=== PATIENT | female | born 1995 | race Caucasian/White ===

== ENCOUNTER 2016-10-22 13:30 | Inpatient (IN) ==
[2016-10-22] MEDS ORDERED: METOPROLOL TARTRATE 25 MG TABLET PO ONE (16:32)
[2016-10-22] MEDS ORDERED: METOPROLOL TARTRATE 5 MG/5 ML VIAL IV ONE ×2 (16:33→16:39)
--- NOTE | 2016-10-22 16:43 | Cardiothoracic History & Phys ---
Assessment and Plan - Time spent with patient Time spent with patient: Greater than 30 minutes (1) Bullous emphysema Status: Acute Assessment and plan: 21-year-old female was found to have severe bullous disease on the left lung. The patient was admitted to [place] for intra-pneumothorax for which she received 2 chest tubes over there. I was consulted today to evaluate the bullous disease and the persistent pneumothorax. I transferred her here to [place] for left VATS exploration, possible bullous resection, and pleurodesis. The patient currently has sinus tachycardia with heart rate around 120s 130s. She was started on beta-blockers. I posted her for surgery on October 23, 2016. Risks benefits and alternatives were discussed extensively with the patient and the family and they approve. Current Visit: Yes History of Present Illness Chief complaint: Extensive bullous disease History of present illness: Ms. Sandoval is a 21 year old female who was 3 days status post and delivery of premature infant at 35 weeks gestation. She was transferred from [place] to be under my care here at [place] due to extensive bullous disease that was seen on a CAT scan obtained 2 days ago of the left lung. The patient was originally admitted around 10 days ago after having chest pain on the left side and the chest x-ray showed tension pneumothorax at that point. She received the chest tube and the ER when she was admitted back then. 2 subsequent chest tubes failed to resolve the pneumothorax thorax. Allergies Allergy/AdvReac Type Severity Reaction Status Date / Time No Known Allergies Allergy Verified 10/22/16 16:25 12 point system: reviewed and no additional remarkable complaints except as stated (HPI) Medical,Surgical,& Family Hx - Medical History Respiratory: History of: Respiratory Problems - Social History Smoking Status: Never smoker Frequency of Alcohol Use: None Type of Drug Use: None Cardiology Physical Exam - Constitutional Vitals: Intake and Output 10/22/16 10/22/16 10/22/16 06:59 14:59 22:59 Other: Weight 59.421 kg Patient Weight 10/23/16 06:59 Weight 59.421 kg General appearance: normal weight - Head Head exam: Present: normal inspection - Eye Eye exam: Present: EOMI Pupils: Present: IZA - ENT ENT exam: Present: normal exam - Respiratory Respiratory exam: Present: other (Absent breath sounds on the left side with chest tubes in place.) - Cardiovascular Cardiovascular exam: Present: tachycardia
[2016-10-22] MEDS ORDERED: SODIUM CHLORIDE 0.9% 1,000 ML IV SCH (17:00)
--- NOTE | 2016-10-22 17:20 | XRay Report ---
XR chest 1V portable Indication: Coronary artery disease. Contrary to the provided history, when ICU was called, patient's actual history is that of recent state with pneumothorax treated at outside facility status post placement of multiple chest tubes. Additional history of chronic cough and persistent sickness during the . Comparison: CT chest performed [facility] October 20, 2016 as well as chest x-ray [facility] October 14, 2016. Technique: Portable AP chest was performed. Findings: Gross distortion of parenchymal architecture is demonstrated throughout the left lung. There is some areas of bleb formation possibly postinfectious cavitary lesion within the central left lung with thin-walled blebs additionally noted within the left lung base. Hydropneumothorax is present. Atelectatic lung segments and/or lung parenchyma within the left lung apex are noted in tethering of the left lung apex is not excluded. 2 left-sided chest tubes are present. The heart size is normal. The right lung is grossly clear. Bones and soft tissues demonstrate no significant abnormalities. Impression: 1. The overall appearance of the chest has probably changed little since the comparison CT. Sequelae of prior infection or congenital etiologies as underlying basis for patient's disease could be considered. Current hydropneumothorax with possible tethering of the left lung apex and multiple bulla are demonstrated. Frozen lung is not excluded. 10/22/2016 4:58 PM PROCEDURE INTERPRETED AT [facility] DEPARTMENT OF RADIOLOGY Final Report Signed by: Dr. Dean John
[2016-10-22] MEDS ORDERED: ACETAMINOPHEN 325 MG TABLET PO PRN (17:55)
[2016-10-22] MEDS: CHLORHEXIDINE 0.12% ORAL RINSE 60 ML BOTTLE SWISH/SPIT SCH (21:36)
[2016-10-22] MEDS: CHLORHEXIDINE 4% SOLN 118 ML BOTTLE TOP SCH (21:36)
[2016-10-23] MEDS ORDERED: BUPIVACAINE LIPOSOMAL 20 ML/266 MG VIAL INFILTRAT ONE (06:00)
[2016-10-23] MEDS ORDERED: ACETAMINOPHEN INJ 1,000 MG in PREMIX 1 EACH IV ONE ×3 (06:00→07:00)
[2016-10-23] MEDS ORDERED: CEFUROXIME INJ 1,500 MG in SODIUM CHLORIDE 0.9% 100 ML IV ONE (06:00)
[2016-10-23 07:45] LABS: Basophils % 0.3 % (0.0-0.8); Eosinophils # 0.4 10*3/uL (0.0-0.87); Eosinophils % 3.7 % (0.00-10.9); Hematocrit 30.8 VOL% (35.7-47.0); Hemoglobin 10.3 GM/DL (12.0-16.0); Immature Granulocytes % 0.5 %; Immature Granulocytes Absolute 0.05 #; Lymphocytes # 1.9 10*3/uL (1.4-4.0); Lymphocytes % 18.2 % (21.3-54.2); Mean Corpuscular HGB Conc 33.4 GM/DL (32-36); Mean Corpuscular Hemoglobin 28 PG (27-34); Mean Corpuscular Volume 83.7 FL (87-102); Mean Platelet Volume 10.4 FL (9.6-12.0); Monocytes # 0.8 10*3/uL (0.11-0.8); Monocytes % 7.3 % (1.7-12.7); Neutrophils # 7.3 10*3/uL (1.4-7.4); Platelet Count 402 T/CUMM (130-400); Red Blood Count 3.68 MC/CUMM (3.8-5.5); Red Cell Distribution Width 13.3 % (9.3-17.3); White Blood Count 10.4 T/CUMM (4-12)
[2016-10-23 07:58] LABS: Calcium 8.5 MG/DL (8.5-10.1); Magnesium 2.2 MG/DL (1.8-2.4); Osmolality,Calculated 278.4 MOS/KG (273-304); Potassium 4.4 MMOL/L (3.5-5.1)
--- NOTE | 2016-10-23 08:04 | OB/GYN Progress Note ---
MANAGER MECHANICAL - PN: Subj Interval history: Patient was transferred from [facility] and is currently on a Dr. Roe service for management and treatment of pneumothorax. From obstetrical viewpoint patient is doing well. Her incision is dry and intact.. She is afebrile. Assessment #1 doing well from obstetrical postop viewpoint Plan we will continue to follow Exam MANAGER MECHANICAL - Constitutional Vitals: Vital Signs Temp Pulse Resp BP Pulse Ox 10/23/16 06:00 90 20 125/80 95 10/23/16 05:00 94 H 20 119/82 95 10/23/16 04:00 98.1 F 99 H 19 117/85 95 10/23/16 03:00 92 H 15 111/76 95 10/23/16 02:00 98 H 18 118/81 94 L 10/23/16 01:00 98 H 18 119/80 95 10/23/16 00:00 98.8 F 94 H 20 124/82 95 10/22/16 23:00 92 H 18 133/85 97 10/22/16 22:00 98 H 21 117/77 96 10/22/16 21:00 93 H 20 123/69 96 10/22/16 20:00 98.7 F 98 H 16 115/80 96 10/22/16 19:00 98 H 20 124/85 95 10/22/16 18:15 94 H 18 125/85 94 L 10/22/16 18:00 103 H 21 125/85 94 L 10/22/16 17:00 102 H 22 144/90 93 L 10/22/16 16:45 103 H 22 145/95 94 L 10/22/16 16:30 131 H 19 123/78 92 L 10/22/16 16:15 98.8 F 125 H 23 138/83 94 L Results - Labs CBC & BMP: 10/23/16 07:27 10/23/16 07:27
[2016-10-23] MEDS: CHLORHEXIDINE 4% SOLN 118 ML BOTTLE TOP SCH ×2 (09:04→14:55)
[2016-10-23] MEDS ORDERED: TALC INTRAPLEURAL POWDER 5 GM BOTTLE INTRAPLEUR ONE (09:31)
[2016-10-23] MEDS ORDERED: HEPARIN 5,000 UNIT/1 ML VIAL ONE (09:31)
[2016-10-23] MEDS ORDERED: TISSUE ADHESIVE 1 EACH APPLICATOR TOP ONE (09:31)
[2016-10-23] MEDS ORDERED: BUPIVACAINE LIPOSOMAL 20 ML/266 MG VIAL ONE (09:32)
[2016-10-23] MEDS ORDERED: LIDOCAINE 1%/EPI INJ 20 ML VIAL ONE (09:56)
[2016-10-23] MEDS ORDERED: BUPIVACAINE 0.25% 50 ML VIAL ONE (09:56)
[2016-10-23] MEDS: LACTATED RINGERS 1,000 ML IV SCH ×3 (10:00→14:28)
[2016-10-23] MEDS ORDERED: LIDOCAINE 100 MG/5 ML SYRINGE ONE (12:40)
[2016-10-23] MEDS ORDERED: CALCIUM CHLORIDE 1,000 MG/10 ML SYRINGE IV ONE ×2 (12:40→13:04)
[2016-10-23] MEDS ORDERED: VECURONIUM 10 MG VIAL IV ONE (12:40)
[2016-10-23] MEDS ORDERED: ONDANSETRON 4 MG/2 ML VIAL ONE ×2 (12:40→13:06)
[2016-10-23] MEDS ORDERED: PROPOFOL 200 MG/20 ML VIAL IV ONE (12:40)
[2016-10-23] MEDS ORDERED: ONDANSETRON 4 MG/2 ML VIAL IV PRN ×2 (12:48→13:24)
--- NOTE | 2016-10-23 13:02 | Anesthesia Post-Op ---
Anesthesia Post OP - Post Ansesthetic Evaluation Patient seen in post op: Yes Resp: within normal limits CV: within normal limits Mental: within normal limits Temp: within normal limits [id number]: within normal limits Nausea and Vomiting: within normal limits Pain: within normal limits
[2016-10-23] MEDS ORDERED: ACETAMINOPHEN 1,000 MG/100 ML VIAL IV ONE (13:04)
[2016-10-23] MEDS ORDERED: MIDAZOLAM 2 MG/2 ML VIAL ONE (13:04)
[2016-10-23] MEDS ORDERED: SEVOFLURANE 1 UNIT/15 MINUTE INH ONE (13:04)
[2016-10-23] MEDS ORDERED: LACTATED RINGERS 1,000 ML IV ONE (13:04)
[2016-10-23] MEDS ORDERED: fentaNYL 100 MCG/2 ML VIAL ONE (13:04)
[2016-10-23] MEDS ORDERED: SODIUM CHLORIDE 0.9% 1,000 ML IV ONE (13:05)
[2016-10-23] MEDS ORDERED: HYDROmorphone 2 MG/1 ML VIAL ONE (13:06)
[2016-10-23] MEDS: HYDROmorphone 2 MG/1 ML VIAL IV PRN ×2 (13:10→13:40)
--- NOTE | 2016-10-23 13:17 | XRay Report ---
XR chest 1V portable Indication: Postop thoracotomy Comparison: Chest x-ray dated October 22, 2016 Technique: Single frontal view of the chest. Findings: Heart size appears within normal limits. 2 chest tubes demonstrated on the left. There is suggested interval thoracotomy change with at least partial pneumonectomy on the left. There is significant pleural space air on the left as well as small pleural fluid. Mild right basilar atelectasis. IMPRESSION: As above. PROCEDURE INTERPRETED AT [facility] DEPARTMENT OF RADIOLOGY Final Report Signed by: Dr Cam Bruno
[2016-10-23] MEDS: KETOROLAC 15 MG/1 ML VIAL IV SCH ×2 (14:20→20:22)
[2016-10-23] MEDS: ENOXAPARIN 40 MG/0.4 ML SYRINGE SUBCUT SCH (14:46)
[2016-10-23] MEDS: CHLORHEXIDINE 0.12% ORAL RINSE 60 ML BOTTLE SWISH/SPIT SCH ×2 (14:47→20:23)
[2016-10-23] MEDS ORDERED: NALOXONE 0.4 MG/ML VIAL IV PRN (14:50)
[2016-10-23] MEDS: GABAPENTIN 100 MG CAPSULE PO SCH ×2 (15:05→20:23)
[2016-10-23] MEDS: POTASSIUM CHLORIDE INJ 10 MEQ in SODIUM CHLORIDE 0.45% 1,000 ML IV SCH ×2 (15:05→23:10)
[2016-10-23 15:07] LABS: Basophils % 0.1 % (0.0-0.8); Eosinophils # 0.1 10*3/uL (0.0-0.87); Eosinophils % 0.3 % (0.00-10.9); Hematocrit 35.9 VOL% (35.7-47.0); Hemoglobin 11.9 GM/DL (12.0-16.0); Immature Granulocytes % 0.6 %; Immature Granulocytes Absolute 0.11 #; Lymphocytes # 1.4 10*3/uL (1.4-4.0); Lymphocytes % 7.8 % (21.3-54.2); Mean Corpuscular HGB Conc 33.1 GM/DL (32-36); Mean Corpuscular Hemoglobin 28 PG (27-34); Mean Corpuscular Volume 84.7 FL (87-102); Mean Platelet Volume 10.3 FL (9.6-12.0); Monocytes % 5.9 % (1.7-12.7); Neutrophils # 14.8 10*3/uL (1.4-7.4); Neutrophils % 85.3 % (38.7-73.9); Platelet Count 384 T/CUMM (130-400); Red Blood Count 4.24 MC/CUMM (3.8-5.5); Red Cell Distribution Width 14.6 % (9.3-17.3); White Blood Count 17.3 T/CUMM (4-12)
[2016-10-23 15:43] LABS: Calcium 8.7 MG/DL (8.5-10.1); Osmolality,Calculated 278.4 MOS/KG (273-304); Potassium 4.7 MMOL/L (3.5-5.1)
[2016-10-23] MEDS: HYDROmorphone PCA 30 MG/30 ML SYRINGE IV SCH (15:43)
--- NOTE | 2016-10-23 18:55 | Pulmonology Progress Note ---
Pulmonary - PN: Subj Interval history: This is a patient followed at [facility] she came in with a spontaneous pneumothorax in the third trimester apparently she had acute onset of chest tightness and shortness of breath and initial chest tube was placed and then replaced by the surgeon and a second chest tube has to be placed. The patient was and delivered her baby on Friday. After that she had a CT scan of the chest that showed abnormal lung. We consulted Dr.el jameson. He transferred the patient to [facility] where he did a thoracotomy today with a lobectomy. Postoperatively she is doing well Exam (Progress Note) - Constitutional Vitals: Period Temp Pulse Resp BP Sys/Samuel Pulse Ox Last 24 Hr 97.1 F-98.8 F 3-103 15-21 109-133/69-86 94-100 Exam: Constitutional: General appearance is normal Eyes: Pupils equal round react to light and accommodation conjunctiva and lids are normal Neck: supple without masses Respiratory: Respiratory effort is normal. Lungs are clear to auscultation. Resonant to percussion. [address] Cardiac: Regular rate and rhythm without murmur rub or gallop. PMI at the midclavicular line by palpation. Carotid arteries 2+ palpation no bruits GI: Bowel sounds normoactive, no tenderness or rebound tenderness, no organomegaly Extremities: no clubbing cyanosis or edema Results - Labs CBC & BMP: 10/23/16 14:51 10/23/16 14:51 Assessment and Plan (1) Primary spontaneous pneumothorax Status: Acute Assessment and plan: Patient seems to be doing markedly better after surgery today her lungs were clear I have nothing to add at this time I will be out of town over the weekend I will come back and check her on Friday of discussed the case at length today with Dr. Roe. Patient is hemodynamically stable and looks relatively pain- free at this time certainly no respiratory distress Current Visit: Yes
[2016-10-23] MEDS: ACETAMINOPHEN INJ 1,000 MG in PREMIX 1 EACH IV SCH (20:21)
[2016-10-23] MEDS: CEFUROXIME INJ 1,500 MG in SODIUM CHLORIDE 0.9% 100 ML IV SCH (20:22)
[2016-10-24] MEDS: KETOROLAC 15 MG/1 ML VIAL IV SCH ×4 (00:40→21:03)
[2016-10-24] MEDS: ACETAMINOPHEN INJ 1,000 MG in PREMIX 1 EACH IV SCH (00:42)
[2016-10-24] MEDS: traMADol 50 MG TABLET PO PRN ×3 (04:32→20:55)
[2016-10-24 05:29] LABS: Basophils % 0.2 % (0.0-0.8); Eosinophils # 0.4 10*3/uL (0.0-0.87); Eosinophils % 2.3 % (0.00-10.9); Hematocrit 30.9 VOL% (35.7-47.0); Hemoglobin 10.1 GM/DL (12.0-16.0); Immature Granulocytes % 0.6 %; Immature Granulocytes Absolute 0.09 #; Lymphocytes # 1.8 10*3/uL (1.4-4.0); Lymphocytes % 11.9 % (21.3-54.2); Mean Corpuscular HGB Conc 32.7 GM/DL (32-36); Mean Corpuscular Hemoglobin 28 PG (27-34); Mean Corpuscular Volume 84.7 FL (87-102); Mean Platelet Volume 10.8 FL (9.6-12.0); Monocytes # 1.2 10*3/uL (0.11-0.8); Neutrophils # 11.8 10*3/uL (1.4-7.4); Platelet Count 331 T/CUMM (130-400); Red Blood Count 3.65 MC/CUMM (3.8-5.5); Red Cell Distribution Width 14.6 % (9.3-17.3); White Blood Count 15.3 T/CUMM (4-12)
[2016-10-24 06:07] LABS: Osmolality,Calculated 273.5 MOS/KG (273-304); Potassium 4.5 MMOL/L (3.5-5.1)
[2016-10-24] MEDS: POTASSIUM CHLORIDE INJ 10 MEQ in SODIUM CHLORIDE 0.45% 1,000 ML IV SCH ×3 (06:43→22:38)
[2016-10-24] MEDS ORDERED: ENOXAPARIN 40 MG/0.4 ML SYRINGE SUBCUT SCH (06:49)
[2016-10-24] MEDS: ACETAMINOPHEN 500 MG TABLET PO SCH ×3 (06:58→20:56)
--- NOTE | 2016-10-24 07:53 | XRay Report ---
XR chest 2V Date: 10/24/2016 4:00 AM History: Left upper lobectomy Comparison: 10/23/2016 Technique: PA and lateral chest Findings: The heart remains normal in size with decrease shift of the mediastinum to the right. Stable left chest tubes with progressive diffuse density in the remaining left lung with smaller pneumothorax. Reduced atelectasis in the right lung. No acute osseous findings. Impression: Recent left upper lobectomy with stable left chest tubes. Significant progressive atelectasis of the remaining left lung with decreased shift of mediastinum to the right. Smaller pneumothorax with larger moderate left pleural effusion. Follow-up chest x-ray recommended. PROCEDURE INTERPRETED AT [facility] DEPARTMENT OF RADIOLOGY Final Report Signed by: Dr. iHna Merrill
[2016-10-24] MEDS: CHLORHEXIDINE 0.12% ORAL RINSE 60 ML BOTTLE SWISH/SPIT SCH ×2 (09:02→21:06)
[2016-10-24] MEDS: PANTOPRAZOLE 40 MG VIAL IV SCH (09:02)
[2016-10-24] MEDS: GABAPENTIN 100 MG CAPSULE PO SCH ×3 (09:02→20:56)
[2016-10-24] MEDS: CEFUROXIME INJ 1,500 MG in SODIUM CHLORIDE 0.9% 100 ML IV SCH (09:03)
--- NOTE | 2016-10-24 11:21 | XRay Report ---
Portable chest Date: 10/24/2016 Clinical history: Pleural effusion Comparison: 10/24/2016 Technique: Portable AP sitting chest Findings: The heart is normal in size. Recent left thoracotomy with stable left chest tubes. Recent left upper lobectomy with only minimal pneumatization remaining left lung. Further increase in size of large pleural effusion with smaller pneumothorax. No significant change in the appearance of the right lung. No significant shift of the mediastinum or acute osseous findings. Impression: Recent left upper lobectomy with only minimal pneumatization of the remaining left lung. Progressive density which can be seen with progressive atelectasis and enlarging pleural effusion. Smaller left pneumothorax with stable chest tubes. Follow-up chest x-ray recommended. PROCEDURE INTERPRETED AT [facility] DEPARTMENT OF RADIOLOGY Final Report Signed by: Dr. Hina Merrill
--- NOTE | 2016-10-24 11:31 | Operative Note ---
Date of procedure: 10/23/16 Pre-op diagnosis: Left lung bullous emphysema with persistent pneumothorax Post-op diagnosis: other (Left upper lobe bullous disease with collapse of the left lower lobe, hemothorax) Procedure: 1. Bronchoscopy and bronchoalveolar lavage 2. Left video-assisted thoracoscopy with exploration 3. Lysis of adhesions 4. Wedge resection [bullous] of the lingula 5. Extensive parenchymal resection [functional left upper lobectomy] of the extensive bullous disease of the left upper lobe 6. Injection of liposomal bupivacaine with intercostal nerve blocks levels 2, 3 , 4, 5, 6, 7, 8 7. Evacuation of hemothorax around 1.5 L of old clotted blood 8. Talc pleurodesis Findings: The chest tubes that were placed at the outside institution. To have injured at least one of the bullae with resultant hemothorax and around 1.5 L of clotted blood was found. Extensive bullous disease was noted in the left upper lobe with over expansion of the left upper lobe causing collapse of the left lower lobe. Parenchymal resection of that bullous disease appeared feasible with complete reexpansion of the left lower lobe which appeared to be free of disease. Details of the procedure: The patient was brought into the OR placed supine on the OR table and general endotracheal anesthesia was induced without any problems. Antibiotics were given. Timeout was performed. I started with a bronchoscopy and confirmed the orona positioning. I did a lavage of the left upper lobe and lower lobe. Then the patient was turned right lateral decubitus left side up. Chest was prepped and draped in the usual sterile fashion. I started with removing the old chest tubes that were placed at the outside institution. After that I made an incision over the eighth rib and I inserted my trocar in the posterior axillary line in the seventh space. I saw extensive bullous disease localized to the left upper lobe and lingula. Extensive adhesions were noted as well. There are the sites of injury to the bullae from what appears to be the insertion of the old chest tubes. There is a round 1.5 L of clotted blood. I then used the chest tube insertion sites as my other working ports. I started by evacuating all the hematoma. This was done meticulously unsuccessfully. I irrigated the chest thoroughly. I then took down all the adhesions. I freed down the left upper lobe completely. I then injected Exparel directly under direct vision 5 cm away from the spine and into levels 2, 3, 4, 5, 6, 7, 8 intercostal nerves. After confirming that the left lower lobe parenchyma is more or less normal. I proceeded with resection of the first bulla from the lingula. I used a purple load stapler. This was done successfully. I then identified extensive bullous disease of the left upper lobe. I resected the bullous disease completely and successfully with staple loads purple linear staplers. This ended up being a functional left upper lobectomy with very small amount of parenchyma left. I decided to leave as much normal parenchyma as possible including was left from the left upper lobe due to the patient's young age and the possibility of redeveloping this bullous disease in the future. Hemostasis was achieved appropriately. The chest was washed thoroughly and a test inflation showed successful inflation of the left lower lobe and was left of the left upper lobe parenchyma with no air leak. I then proceeded with spraying talc powder around the chest wall and the lung parenchyma. I then entered inserted an angled as well as a straight chest tubes. The patient tolerated the procedure well. All counts were correct at the end of the procedure. I then closed the deep layer with PDS. I then closed the skin with saida. Prior to extubation another bronchoscopy was performed with suction of secretions from the left lower lobe. The patient was transferred to PACU in good condition after extubation. Anesthesia: ASHOK Surgeon / Physician: Radha Roe Estimated blood loss: minimal Specimens: other (Left upper lobe parenchyma, lingula which) Condition: stable Disposition: PACU Results - Labs CBC & BMP: 10/24/16 04:02 10/24/16 04:02 Discharge Plan - Discharge Medications No Action No Known Home Medications [No Known Home Medications] - Follow Up or Referral - Forms/Instructions
--- NOTE | 2016-10-24 11:33 | Cardiothoracic Progress Note ---
Assessment and Plan (1) Bullous emphysema Status: Acute Assessment and plan: Postoperative day 1 status post extended parenchymal resection of the left lung due to bullous disease. Patient did very well overnight. Pain is well controlled. Chest x-ray showed the expected inflammatory reaction to talc. The lung appears almost completely reexpanded on the left side. Output from the chest tube currently is thin. We will keep it to suction. We will get the patient out of bed. We can advance her diet. We will keep her in the ICU 1 more day due to sinus tachycardia. Current Visit: Yes Exam (Progress Note) - Constitutional Vitals: Period Temp Pulse Resp BP Sys/Samuel Pulse Ox Last 24 Hr 96.9 F-98.7 F 3-108 14-30 100-129/63-86 97-100 Result/EKG - Labs CBC & BMP: 10/24/16 04:02 10/24/16 04:02 Labs: Laboratory Results - last 24 hr 10/22/16 10/23/16 10/23/16 16:55 14:51 14:51 WBC 17.3 H D RBC 4.24 Hgb 11.9 L Hct 35.9 MCV 84.7 L MCH 28 MCHC 33.1 RDW 14.6 Plt Count 384 MPV 10.3 Neut % (Auto) 85.3 H Lymph % (Auto) 7.8 L Bulloch % (Auto) 5.9 Eos % (Auto) 0.3 Baso % (Auto) 0.1 Neut # (Auto) 14.8 H Lymph # (Auto) 1.4 Bulloch # (Auto) 1.0 H Eos # (Auto) 0.1 Baso # (Auto) 0.0 Immature Gran % 0.6 Nucleated RBC % 0.0 Immature Gran # 0.11 Nucleated RBCs # 0.00 Immature Plt Fraction 0.0 Sodium 140 Potassium 4.7 Chloride 110 H Carbon Dioxide 23 Anion Gap 11.7 BUN 12 Creatinine 0.40 L GFR Calculation 138 BUN/Creatinine Ratio 30.00 H Glucose 103 Calculated Osmolality 278.4 Calcium 8.7 Blood Type O POSITIVE Antibody Screen Negative Crossmatch See Detail 10/23/16 10/24/16 10/24/16 Unknown 04:02 04:02 WBC 15.3 H RBC 3.65 L Hgb 10.1 L Hct 30.9 L MCV 84.7 L MCH 28 MCHC 32.7 RDW 14.6 Plt Count 331 MPV 10.8 Neut % (Auto) 77.0 H Lymph % (Auto) 11.9 L Bulloch % (Auto) 8.0 Eos % (Auto) 2.3 Baso % (Auto) 0.2 Neut # (Auto) 11.8 H Lymph # (Auto) 1.8 Bulloch # (Auto) 1.2 H Eos # (Auto) 0.4 Baso # (Auto) 0.0 Immature Gran % 0.6 Nucleated RBC % 0.0 Immature Gran # 0.09 Nucleated RBCs # 0.00 Immature Plt Fraction 0.0 Sodium 139 Potassium 4.5 Chloride 107 Carbon Dioxide 24 Anion Gap 12.5 BUN 7 Creatinine 0.30 L GFR Calculation 151 BUN/Creatinine Ratio 23.00 H Glucose 89 Calculated Osmolality 273.5 Calcium 8.0 L Blood Type O POSITIVE Antibody Screen Crossmatch
[2016-10-24] MEDS: CELECOXIB 200 MG CAPSULE PO SCH ×2 (12:21→20:56)
[2016-10-24] MEDS: ENOXAPARIN 40 MG/0.4 ML SYRINGE SUBCUT SCH (12:21)
[2016-10-24] MEDS ORDERED: METOPROLOL TARTRATE 5 MG/5 ML VIAL IV ONE ×2 (13:51→14:00)
[2016-10-24] MEDS ORDERED: LACTATED RINGERS 1,000 ML IV SCH (14:30)
[2016-10-24] MEDS: METOPROLOL TARTRATE 25 MG TABLET PO SCH (20:57)
[2016-10-25] MEDS: KETOROLAC 15 MG/1 ML VIAL IV SCH ×2 (03:11→08:39)
[2016-10-25] MEDS: ACETAMINOPHEN 500 MG TABLET PO SCH ×4 (03:12→18:13)
[2016-10-25 04:05] LABS: Basophils % 0.2 % (0.0-0.8); Eosinophils # 0.5 10*3/uL (0.0-0.87); Eosinophils % 4.5 % (0.00-10.9); Hematocrit 24.2 VOL% (35.7-47.0); Hemoglobin 8.1 GM/DL (12.0-16.0); Immature Granulocytes % 0.5 %; Immature Granulocytes Absolute 0.05 #; Lymphocytes # 2.2 10*3/uL (1.4-4.0); Lymphocytes % 21.1 % (21.3-54.2); Mean Corpuscular HGB Conc 33.5 GM/DL (32-36); Mean Corpuscular Hemoglobin 28 PG (27-34); Mean Platelet Volume 10.8 FL (9.6-12.0); Monocytes # 1.1 10*3/uL (0.11-0.8); Monocytes % 10.1 % (1.7-12.7); Neutrophils # 6.7 10*3/uL (1.4-7.4); Neutrophils % 63.6 % (38.7-73.9); Platelet Count 334 T/CUMM (130-400); Red Blood Count 2.88 MC/CUMM (3.8-5.5); Red Cell Distribution Width 14.4 % (9.3-17.3); White Blood Count 10.5 T/CUMM (4-12)
[2016-10-25 04:35] LABS: Calcium 7.8 MG/DL (8.5-10.1); Osmolality,Calculated 281.1 MOS/KG (273-304)
[2016-10-25] MEDS: POTASSIUM CHLORIDE INJ 10 MEQ in SODIUM CHLORIDE 0.45% 1,000 ML IV SCH (07:29)
[2016-10-25] MEDS: HYDROmorphone PCA 30 MG/30 ML SYRINGE IV SCH (07:46)
--- NOTE | 2016-10-25 08:14 | XRay Report ---
XR chest 2V Indication: Left upper lobectomy Comparison: 24 October 2016 Findings: The heart and mediastinum are stable in size and configuration. Chest tubes are unchanged in position. The pulmonary vascularity is normal in caliber. Left pulmonary infiltrates increased density are present similar to previous study. No other pulmonary infiltrates, effusions, pneumothorax or other abnormality is demonstrated. Impression: No significant changes. PROCEDURE INTERPRETED AT [facility] DEPARTMENT OF RADIOLOGY Final Report Signed by: Dr. Luis Carbajal
[2016-10-25] MEDS: CHLORHEXIDINE 0.12% ORAL RINSE 60 ML BOTTLE SWISH/SPIT SCH (08:37)
[2016-10-25] MEDS: PANTOPRAZOLE 40 MG VIAL IV SCH (08:37)
[2016-10-25] MEDS: GABAPENTIN 100 MG CAPSULE PO SCH ×3 (08:40→21:06)
[2016-10-25] MEDS: METOPROLOL TARTRATE 25 MG TABLET PO SCH (08:40)
[2016-10-25] MEDS: CELECOXIB 200 MG CAPSULE PO SCH ×2 (08:40→21:06)
[2016-10-25] MEDS ORDERED: KETOROLAC 15 MG/1 ML VIAL IV ONE (09:00)
[2016-10-25 10:34] LABS: Basophils % 0.2 % (0.0-0.8); Eosinophils # 0.5 10*3/uL (0.0-0.87); Eosinophils % 3.8 % (0.00-10.9); Hematocrit 26.2 VOL% (35.7-47.0); Hemoglobin 8.6 GM/DL (12.0-16.0); Immature Granulocytes % 0.9 %; Immature Granulocytes Absolute 0.11 #; Lymphocytes % 16.3 % (21.3-54.2); Mean Corpuscular HGB Conc 32.8 GM/DL (32-36); Mean Corpuscular Hemoglobin 28 PG (27-34); Mean Corpuscular Volume 85.6 FL (87-102); Mean Platelet Volume 10.5 FL (9.6-12.0); Monocytes % 8.1 % (1.7-12.7); Neutrophils # 8.6 10*3/uL (1.4-7.4); Neutrophils % 70.7 % (38.7-73.9); Platelet Count 344 T/CUMM (130-400); Red Blood Count 3.06 MC/CUMM (3.8-5.5); Red Cell Distribution Width 14.4 % (9.3-17.3); White Blood Count 12.1 T/CUMM (4-12)
[2016-10-25] MEDS: ENOXAPARIN 40 MG/0.4 ML SYRINGE SUBCUT SCH (12:31)
--- NOTE | 2016-10-25 15:15 | Cardiothoracic Progress Note ---
Assessment and Plan (1) Bullous emphysema Status: Acute Assessment and plan: Postoperative day 2 status post extended parenchymal resection of the left lung due to bullous disease. Patient did very well overnight. Pain is well controlled. Chest x-ray showing the expected inflammatory reaction to talc. The lung appears almost completely reexpanded on the left side. Output from the chest tube currently is thin. Chest tubes to waterseal. There is no air leak. I expect to remove the chest tubes tomorrow and hopefully discharge the patient tomorrow.. Current Visit: Yes Exam (Progress Note) - Constitutional Vitals: Period Temp Pulse Resp BP Sys/Samuel Pulse Ox Last 24 Hr 98.0 F-99.1 F 77-122 19-29 95-128/52-79 96-99 Result/EKG - Labs CBC & BMP: 10/25/16 10:20 10/25/16 03:21 Labs: Laboratory Results - last 24 hr 10/25/16 10/25/16 10/25/16 03:21 03:21 10:20 WBC 10.5 D 12.1 H RBC 2.88 L D 3.06 L Hgb 8.1 L D 8.6 L Hct 24.2 L 26.2 L MCV 84.0 L 85.6 L MCH 28 28 MCHC 33.5 32.8 RDW 14.4 14.4 Plt Count 334 344 MPV 10.8 10.5 Neut % (Auto) 63.6 70.7 Lymph % (Auto) 21.1 L 16.3 L Vance % (Auto) 10.1 8.1 Eos % (Auto) 4.5 3.8 Baso % (Auto) 0.2 0.2 Neut # (Auto) 6.7 8.6 H Lymph # (Auto) 2.2 2.0 Vance # (Auto) 1.1 H 1.0 H Eos # (Auto) 0.5 0.5 Baso # (Auto) 0.0 0.0 Immature Gran % 0.5 0.9 Nucleated RBC % 0.0 0.0 Immature Gran # 0.05 0.11 Nucleated RBCs # 0.00 0.00 Immature Plt Fraction 0.0 0.0 Sodium 142 Potassium 4.0 Chloride 109 H Carbon Dioxide 26 Anion Gap 11.0 BUN 4 L Creatinine 0.30 L GFR Calculation 151 BUN/Creatinine Ratio 13.00 Glucose 136 H Calculated Osmolality 281.1 Calcium 7.8 L
[2016-10-26] MEDS: ACETAMINOPHEN 500 MG TABLET PO SCH ×4 (02:11→18:10)
[2016-10-26 05:17] LABS: Basophils % 0.2 % (0.0-0.8); Eosinophils # 0.3 10*3/uL (0.0-0.87); Eosinophils % 3.9 % (0.00-10.9); Hemoglobin 8.5 GM/DL (12.0-16.0); Immature Granulocytes % 0.6 %; Immature Granulocytes Absolute 0.05 #; Lymphocytes % 22.7 % (21.3-54.2); Mean Corpuscular HGB Conc 32.7 GM/DL (32-36); Mean Corpuscular Hemoglobin 28 PG (27-34); Mean Corpuscular Volume 84.7 FL (87-102); Monocytes # 0.8 10*3/uL (0.11-0.8); Monocytes % 8.7 % (1.7-12.7); Neutrophils # 5.6 10*3/uL (1.4-7.4); Neutrophils % 63.9 % (38.7-73.9); Platelet Count 394 T/CUMM (130-400); Red Blood Count 3.07 MC/CUMM (3.8-5.5); Red Cell Distribution Width 14.3 % (9.3-17.3); White Blood Count 8.7 T/CUMM (4-12)
[2016-10-26 05:53] LABS: Potassium 4.2 MMOL/L (3.5-5.1)
[2016-10-26] MEDS: CELECOXIB 200 MG CAPSULE PO SCH ×2 (08:35→21:15)
[2016-10-26] MEDS: PANTOPRAZOLE 40 MG VIAL IV SCH (08:35)
[2016-10-26] MEDS: GABAPENTIN 100 MG CAPSULE PO SCH ×3 (08:35→21:15)
--- NOTE | 2016-10-26 09:42 | XRay Report ---
XR chest 2V Date: 10/26/2016 4:00 AM History: Left upper lobectomy Comparison: 10/25/2016 Technique: PA and lateral chest Findings: The heart remains normal in size. Recent left upper lobectomy with improved aeration the remaining left lung. No significant pneumothorax is identified with smaller left pleural effusion. Decreased atelectasis at the right lung base. Stable mediastinum and osseous structures. Impression: Recent left upper lobectomy with progressive reexpansion of the remaining left lung with smaller left pleural effusion and no significant pneumothorax. Reduced atelectasis at the right lung base. PROCEDURE INTERPRETED AT [facility] DEPARTMENT OF RADIOLOGY Final Report Signed by: Dr. Hina Merrill
--- NOTE | 2016-10-26 10:29 | Discharge Summary ---
Hospital Course - Hospital Course Hospital Course: 21-year-old female was transferred under my care from [facility] to here with persistent pneumothorax after multiple chest tube attempts and newly diagnosed extensive bullous disease of the left lung. The patient was taken to surgery and resection and pleurodesis was done. Details of this procedure is in a separate note. The patient did very well after that. Postoperative day 0 she was already extubated and she was placed under observation. She had sinus tachycardia on transient occasions however that was also noted prior to admission. This was controlled with as needed medications. Postoperative day 2 and 3 and the patient did very well. There was no air leak. Chest x-ray improved significantly with complete reexpansion of the left lower lobe. The patient was transferred to telemetry on postoperative day 2. Postoperative day 4 the patient was doing very well. The chest tube was clamped. Chest x-ray after that showed continued reexpansion of the lung with no problems. The patient was ready for discharge. - Time spent with patient Time with patient DS: Greater than 30 minutes Diagnosis - Discharge Diagnosis (1) Bullous emphysema Status: Acute Specialty Discharge - Follow Up or Referrals Follow up with: Radha Roe [Physician] - Discharge Plan - Discharge Data Disposition: Disch To Home/Self Care Condition at Discharge: Stable Activity: resume usual activities as tolerated Hygiene: no restrictions Driving: no restrictions Contact your physician if you experience:: fever over 101, Redness or swelling, Nausea/Vomiting, Shortness of breath, Bleeding, pain uncontrolled by pain medications - Discharge Medications New RX: Acetaminophen Tab [Tylenol Tab] 1,000 mg PO Q6H #60 tablet RX: Celecoxib [Celebrex] 200 mg PO BID #60 capsule RX: Gabapentin Cap/Tab [Neurontin Cap/Tab] 100 mg PO TID #60 capsule RX: traMADol TAB [Ultram] 50 mg PO Q6H PRN #60 tablet PRN Reason: Pain Mild (1-3) - Follow Up or Referral Follow Up: Radha Roe [Physician] - - Forms/Instructions Exam - Constitutional Vitals: Period Temp Pulse Resp BP Sys/Samuel Pulse Ox Last 24 Hr 98.4 F-99.6 F 79-112 12-25 108-124/63-83 97-100 Discharge Results Procedures and tests throughout hospitalization: Pending Orders 10/22/16 16:55 Red Blood Cells Leuko Red Routine Type and Screen Routine 10/26/16 12:00 XR chest 2V Routine Labs on day of discharge: Labs from last 24 hours 10/26/16 10/26/16 10/25/16 03:56 03:56 10:20 WBC 8.7 12.1 H RBC 3.07 L 3.06 L Hgb 8.5 L 8.6 L Hct 26.0 L 26.2 L MCV 84.7 L 85.6 L MCH 28 28 MCHC 32.7 32.8 RDW 14.3 14.4 Plt Count 394 344 MPV 11.0 10.5 Neut % (Auto) 63.9 70.7 Lymph % (Auto) 22.7 16.3 L Rogers % (Auto) 8.7 8.1 Eos % (Auto) 3.9 3.8 Baso % (Auto) 0.2 0.2 Neut # (Auto) 5.6 8.6 H Lymph # (Auto) 2.0 2.0 Rogers # (Auto) 0.8 1.0 H Eos # (Auto) 0.3 0.5 Baso # (Auto) 0.0 0.0 Immature Gran % 0.6 0.9 Nucleated RBC % 0.0 0.0 Immature Gran # 0.05 0.11 Nucleated RBCs # 0.00 0.00 Immature Plt Fraction 0.0 0.0 Sodium 143 Potassium 4.2 Chloride 109 H Carbon Dioxide 27 Anion Gap 11.2 BUN 6 L Creatinine 0.40 L GFR Calculation 137 BUN/Creatinine Ratio 15.00 Glucose 107 H Calculated Osmolality 282.0 Calcium 8.0 L DS: Provider Date of admission: 10/22/16 16:11 Primary care physician: . No PCP Attending physician on admission: Radha Roe Consults: 10/22/16 16:12 Consult to Anesthesiology [CONS] Routine Consulting Provider: Reason for Anesthesiology: Pre-op Clearance Consult to Cardiac Rehabilitation [CONS] Routine Reason for Cardiac Rehabilitation: Other Consult Comment: Cardiac rehab to evaluate and recommend Consult to Dietitian [CONS] Routine Reason for Dietitian: Other Consult Comment: low salt, low cholesterol, diet Consult to Occupational Therapy [CONS] Routine Reason for Occupational Therapy: Evaluate and Treat Consult to Pastoral Services [CONS] Routine Comment: Emotional support Consult to Physical Therapy [CONS] Routine Reason for Physical Therapy: Evaluate and Treat 10/25/16 12:10 Consult to Warehouse Material Handler [CONS] Routine Consult Warehouse Material Handler: Breast Feeding Discharging clinician: Radha Roe Expected date of discharge: 10/26/16
[2016-10-26] MEDS: ENOXAPARIN 40 MG/0.4 ML SYRINGE SUBCUT SCH (12:00)
--- NOTE | 2016-10-26 12:44 | XRay Report ---
XR chest 2V Date: 10/26/2016 12:00 PM History: Shortness of breath Comparison: 10/26/2016 Technique: PA and lateral chest Findings: The heart remains normal in size. Recent left upper lobectomy with stable left chest tubes. No change in the parenchymal findings in the lungs with small left pleural effusion. No significant pneumothorax is identified. However it is difficult to exclude a residual small loculated pneumothorax lateral to the upper chest tube. Stable mediastinum and osseous structures. Impression: No significant change in the appearance the chest. Recent left upper lobectomy with residual infiltration/atelectasis is small left pleural effusion. It is difficult to exclude a residual small loculated pneumothorax lateral to the left chest tube. PROCEDURE INTERPRETED AT [facility] DEPARTMENT OF RADIOLOGY Final Report Signed by: Dr. Hina Merrill
[2016-10-27] MEDS: traMADol 50 MG TABLET PO PRN (00:47)
[2016-10-27] MEDS: ACETAMINOPHEN 500 MG TABLET PO SCH ×2 (03:08→06:37)
[2016-10-27 07:58] VITALS: BP 115/72
[2016-10-27] MEDS: PANTOPRAZOLE 40 MG VIAL IV SCH (08:39)
[2016-10-27] MEDS: GABAPENTIN 100 MG CAPSULE PO SCH (08:39)
[2016-10-27] MEDS: CELECOXIB 200 MG CAPSULE PO SCH (08:40)
--- NOTE | 2016-10-27 09:16 | XRay Report ---
XR chest 2V Date: 10/27/2016 6:00 AM History: Shortness of breath Comparison: 10/26/2016 Technique: PA and lateral chest Findings: The heart remains normal in size. Recent left upper lobectomy with stable left chest tubes. Small residual pneumothorax adjacent to the upper left chest tube. Little change in the diffuse parenchymal findings in the remaining left lung with small loculated left pleural effusion. Minimal atelectasis at the right lung base with stable mediastinum and osseous structures. Impression: Little change in the appearance of the chest. Recent left upper lobectomy with residual infiltration/atelectasis and small left pleural effusion. Residual small pneumothorax adjacent to the upper left chest tube. PROCEDURE INTERPRETED AT [facility] DEPARTMENT OF RADIOLOGY Final Report Signed by: Dr. Hina Merrill
--- NOTE | 2016-10-27 10:19 | XRay Report ---
Portable chest Date: 10/27/2016 Clinical history: Shortness of breath Comparison: 10/27/2016 Technique: Portable AP sitting chest Findings: The heart remains normal in size. Interval removal of the left chest tubes in patient with recent left upper lobectomy. Fairly stable parenchymal and pleural findings in the left hemithorax with residual small pneumothorax. Reduced atelectasis at the right lung base. Stable mediastinum and osseous structures. Impression: Interval removal of the left chest tubes with recent left upper lobectomy. Fairly stable pleural-parenchymal findings in the left lung with persistent residual small loculated pneumothorax or incomplete reexpansion of the left lung. PROCEDURE INTERPRETED AT [facility] DEPARTMENT OF RADIOLOGY Final Report Signed by: Dr. Hina Merrill
--- NOTE | 2016-10-28 13:21 | Pathology Report from [facility] ---
[facility] [place] : [id number] PATIENT NAME : Tiesha Stock ORDERING DR : Radha Roe MD CLINICAL HX: LT bullous emphysema POST-OP DX: Same SPECIMEN INFO: #1 LT upper lobe lung wedge #2 LT upper lobe lung tissue GROSS DESCRIPTION: The specimen is received in formalin in two parts labeled TIESHA STOCK. Part #1 consists of a thin walled collapsed sacular structure measuring 5.2 x 5.5 cm. Supervisor Varnish section submitted in cassettes #1A and 1B.Part #2 consists of a shaggy fragment of marked hemorrhagic tissue measuring 16.0 x 10.5 x 2.2 cm. Supervisor Varnish section submitted in cassettes 2A-2C. 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 COLLECTED DATE: 10/24/2016 [facility] REPORT DATE: 10/25/2016 ELECTRONICALLY SIGNED BY: Harper Caruso M.D. 10/25/2016 - 10:21:59 MTDNeftaly
== END 2016-10-27 11:25 | disposition home or self-care (01) | DRG 950 ==
LOC: N.ICU 16:11 → N.TELES 10-25 17:03
PROVIDERS: ADMIT Thoracic Surgery (Cardiothoracic Vascular Surgery); ATTEND Thoracic Surgery (Cardiothoracic Vascular Surgery)